=== PATIENT | female | born 1940 | race Caucasian/White ===

== ENCOUNTER 2017-10-08 13:50 | Inpatient (IN) | payer MEDICARE, OTHER ==
[2017-10-08 14:49] LABS: ADD MAN DIFF? NO
[2017-10-08 14:51] LABS: BASOPHIL # 0.1 10^3/ul (0.0-0.1); BASOPHILS % 1.2 % (0.0-2.0); EOSINOPHILS # 0.2 10^3/ul (0.0-0.5); EOSINOPHILS % 2.5 % (0.0-7.0); HEMATOCRIT 28.8 % (37.0-47.0); HEMOGLOBIN 9.9 g/dl (12.0-16.0); LYMPHOCYTES # 1.3 10^3/ul (0.8-2.9); LYMPHOCYTES % 19.6 % (15.0-51.0); MEAN CORPUSCULAR HEMOGLOBIN 27.7 pg (29.0-33.0); MEAN CORPUSCULAR HGB CONC 34.4 g/dl (32.0-37.0); MEAN CORPUSCULAR VOLUME 80.4 fl (82.0-101.0); MEAN PLATELET VOLUME 10.3 fl (7.4-10.4); MONOCYTE # 0.7 10^3/ul (0.3-0.9); MONOCYTES % 11.3 % (0.0-11.0); NEUTROPHIL # 4.2 10^3/ul (1.6-7.5); NEUTROPHILS % 64.5 % (39.0-77.0); PLATELET COUNT 342 10^3/UL (140-415); RED BLOOD COUNT 3.58 10^6/ul (4.20-5.40); RED CELL DISTRIBUTION WIDTH 14.3 % (11.5-14.5)
[2017-10-08 14:51] LABS: WHITE BLOOD COUNT 6.5 10^3/ul (4.8-10.8)
[2017-10-08 15:13] LABS: ANION GAP 17 (8-16); BLOOD UREA NITROGEN 11 mg/dl (7-20); CALCIUM 9.3 mg/dl (8.4-10.2); CARBON DIOXIDE 36 mmol/L (21-31); CHLORIDE 95 mmol/L (97-110); CREATININE 2.99 mg/dl (0.44-1.00); GLUCOSE 105 mg/dl (70-220); POTASSIUM 3.7 mmol/L (3.5-5.1); SODIUM 144 mmol/L (135-144)
[2017-10-08 15:24] LABS: TROPONIN-I 0.017 ng/ml (0.00-0.12)
[2017-10-08] MEDS ORDERED: NACL 0.9% 3 ML SYG IV (19:00)
[2017-10-08] MEDS: ACETAMINOPHEN 325 MG TAB PO (20:02)
[2017-10-08] MEDS: LOSARTAN 50 MG TAB PO (21:16)
[2017-10-08] MEDS: METOPROLOL 50 MG TAB PO (23:07)
[2017-10-09] MEDS: PANTOPRAZOLE (EC) 40 MG TAB PO (05:51)
[2017-10-09 07:46] LABS: ADD MAN DIFF? NO
[2017-10-09 07:49] LABS: BASOPHIL # 0.1 10^3/ul (0.0-0.1); BASOPHILS % 1.3 % (0.0-2.0); EOSINOPHILS # 0.1 10^3/ul (0.0-0.5); EOSINOPHILS % 1.6 % (0.0-7.0); LYMPHOCYTES # 1.9 10^3/ul (0.8-2.9); MEAN CORPUSCULAR HGB CONC 33.3 g/dl (32.0-37.0); MEAN CORPUSCULAR VOLUME 81.1 fl (82.0-101.0); MEAN PLATELET VOLUME 10.4 fl (7.4-10.4); MONOCYTE # 0.9 10^3/ul (0.3-0.9); NEUTROPHIL # 3.9 10^3/ul (1.6-7.5); NEUTROPHILS % 56.5 % (39.0-77.0); PLATELET COUNT 353 10^3/UL (140-415); RED BLOOD COUNT 3.33 10^6/ul (4.20-5.40); RED CELL DISTRIBUTION WIDTH 14.4 % (11.5-14.5)
[2017-10-09 07:49] LABS: WHITE BLOOD COUNT 6.9 10^3/ul (4.8-10.8)
[2017-10-09 08:19] LABS: ANION GAP 18 (8-16); BLOOD UREA NITROGEN 17 mg/dl (7-20); CALCIUM 9.3 mg/dl (8.4-10.2); CARBON DIOXIDE 36 mmol/L (21-31); CHLORIDE 93 mmol/L (97-110); CREATININE 4.75 mg/dl (0.44-1.00); GLUCOSE 85 mg/dl (70-220); POTASSIUM 4.5 mmol/L (3.5-5.1); SODIUM 142 mmol/L (135-144)
[2017-10-09] MEDS: ENOXAPARIN 30 MG/0.3 ML SYG SC (08:56)
[2017-10-09] MEDS: CALCIUM ACETATE 667 MG CAP PO ×3 (08:57→18:05)
[2017-10-09] MEDS: ASPIRIN (EC) 81 MG TAB PO (08:57)
[2017-10-09] MEDS: METOPROLOL 50 MG TAB PO ×2 (08:57→21:09)
[2017-10-09] MEDS: LOSARTAN 50 MG TAB PO ×2 (08:57→21:10)
[2017-10-09] MEDS: NIFEdipine (XL) 90 MG TAB PO (08:58)
[2017-10-09] MEDS: ACETAMINOPHEN 325 MG TAB PO (08:58)
[2017-10-09] MEDS: OLOPATADINE 0.7% BOTH EYES (09:00)
[2017-10-09] MEDS: [UNRECOGNIZED DRUG - REMARK] XX ×2 (09:30→17:30)
[2017-10-09] MEDS: GUAIFENESIN/DM 5ML CUP PO ×2 (15:32→21:10)
[2017-10-09] MEDS: morphine 2 MG INJ IV (22:47)
[2017-10-09] MEDS: ONDANSETRON 4 MG INJ IV (22:47)
[2017-10-10] MEDS: [UNRECOGNIZED DRUG - REMARK] XX (01:30)
[2017-10-10] MEDS: PANTOPRAZOLE (EC) 40 MG TAB PO (06:00)
[2017-10-10 07:03] LABS: ADD MAN DIFF? NO
[2017-10-10 07:11] LABS: WHITE BLOOD COUNT 8.3 10^3/ul (4.8-10.8)
[2017-10-10 07:11] LABS: BASOPHIL # 0.1 10^3/ul (0.0-0.1); BASOPHILS % 1.1 % (0.0-2.0); EOSINOPHILS # 0.3 10^3/ul (0.0-0.5); EOSINOPHILS % 3.3 % (0.0-7.0); HEMATOCRIT 27.7 % (37.0-47.0); HEMOGLOBIN 9.3 g/dl (12.0-16.0); LYMPHOCYTES # 2.1 10^3/ul (0.8-2.9); LYMPHOCYTES % 24.7 % (15.0-51.0); MEAN CORPUSCULAR HEMOGLOBIN 27.4 pg (29.0-33.0); MEAN CORPUSCULAR HGB CONC 33.6 g/dl (32.0-37.0); MEAN CORPUSCULAR VOLUME 81.5 fl (82.0-101.0); MEAN PLATELET VOLUME 10.2 fl (7.4-10.4); MONOCYTE # 0.9 10^3/ul (0.3-0.9); MONOCYTES % 11.2 % (0.0-11.0); NEUTROPHIL # 4.9 10^3/ul (1.6-7.5); NEUTROPHILS % 59.3 % (39.0-77.0); PLATELET COUNT 342 10^3/UL (140-415); RED CELL DISTRIBUTION WIDTH 14.8 % (11.5-14.5)
[2017-10-10 07:33] LABS: IRON 59 ug/dl (35-150)
[2017-10-10 07:35] LABS: PHOSPHORUS 4.2 mg/dl (2.5-4.9)
[2017-10-10 07:35] LABS: CHOL/HDL RATIO 5.3 RATIO; CHOLESTEROL 170 mg/dl (100-200); HDL CHOLESTEROL 32 mg/dl (33-92); LDL CHOLESTEROL,CALCULATED 94 mg/dl; MAGNESIUM 2.1 mg/dl (1.7-2.5); TRIGLYCERIDES 221 mg/dl (0-149)
[2017-10-10 07:43] LABS: % IRON SATURATION 35 % SAT (22-52); TOTAL IRON BINDING CAPACITY 171 ug/dl (241-421)
[2017-10-10 07:44] LABS: HEMOGLOBIN A1C 4.7 % (0-5.9)
[2017-10-10 07:47] LABS: ANION GAP 17 (8-16); BLOOD UREA NITROGEN 26 mg/dl (7-20); CALCIUM 9.6 mg/dl (8.4-10.2); CARBON DIOXIDE 37 mmol/L (21-31); CHLORIDE 91 mmol/L (97-110); CREATININE 6.88 mg/dl (0.44-1.00); GLUCOSE 94 mg/dl (70-220); POTASSIUM 4.8 mmol/L (3.5-5.1); SODIUM 140 mmol/L (135-144)
[2017-10-10 07:50] LABS: FREE T4 (FREE THYROXINE) 1.94 ng/dl (0.78-2.44)
[2017-10-10] MEDS: OLOPATADINE 0.7% BOTH EYES (08:41)
[2017-10-10] MEDS: ASPIRIN (EC) 81 MG TAB PO (08:42)
[2017-10-10] MEDS: CALCIUM ACETATE 667 MG CAP PO ×3 (08:42→17:33)
[2017-10-10] MEDS: ENOXAPARIN 30 MG/0.3 ML SYG SC (08:44)
[2017-10-10] MEDS: LOSARTAN 50 MG TAB PO ×2 (08:45→21:06)
[2017-10-10] MEDS: NIFEdipine (XL) 90 MG TAB PO (08:46)
[2017-10-10] MEDS: METOPROLOL 50 MG TAB PO ×2 (08:46→21:06)
[2017-10-10] MEDS ORDERED: INFLUENZA VIRUS VACCINE 0.5 ML (DISPENSING) IM* (09:00)
[2017-10-10] MEDS: ONDANSETRON 4 MG INJ IV (10:55)
[2017-10-10] MEDS: GUAIFENESIN/DM 5ML CUP PO ×2 (10:58→18:23)
[2017-10-10] MEDS: BISACODYL (EC) 5 MG TAB PO (12:46)
[2017-10-11] MEDS: GUAIFENESIN/DM 5ML CUP PO ×2 (01:50→21:57)
[2017-10-11] MEDS: ACETAMINOPHEN 325 MG TAB PO ×4 (01:57→21:06)
[2017-10-11] MEDS: PANTOPRAZOLE (EC) 40 MG TAB PO (06:10)
[2017-10-11 08:27] LABS: ADD MAN DIFF? NO
[2017-10-11 08:32] LABS: WHITE BLOOD COUNT 8.1 10^3/ul (4.8-10.8)
[2017-10-11 08:32] LABS: BASOPHIL # 0.1 10^3/ul (0.0-0.1); BASOPHILS % 1.1 % (0.0-2.0); EOSINOPHILS # 0.3 10^3/ul (0.0-0.5); EOSINOPHILS % 3.7 % (0.0-7.0); HEMATOCRIT 28.8 % (37.0-47.0); HEMOGLOBIN 9.6 g/dl (12.0-16.0); LYMPHOCYTES # 2.1 10^3/ul (0.8-2.9); LYMPHOCYTES % 26.2 % (15.0-51.0); MEAN CORPUSCULAR HEMOGLOBIN 27.7 pg (29.0-33.0); MEAN CORPUSCULAR HGB CONC 33.3 g/dl (32.0-37.0); MEAN CORPUSCULAR VOLUME 83.2 fl (82.0-101.0); MEAN PLATELET VOLUME 9.9 fl (7.4-10.4); MONOCYTE # 0.9 10^3/ul (0.3-0.9); MONOCYTES % 11.1 % (0.0-11.0); NEUTROPHIL # 4.7 10^3/ul (1.6-7.5); NEUTROPHILS % 57.4 % (39.0-77.0); PLATELET COUNT 327 10^3/UL (140-415); RED BLOOD COUNT 3.46 10^6/ul (4.20-5.40); RED CELL DISTRIBUTION WIDTH 15.7 % (11.5-14.5)
[2017-10-11] MEDS: ASPIRIN (EC) 81 MG TAB PO (08:37)
[2017-10-11] MEDS: CALCIUM ACETATE 667 MG CAP PO ×3 (08:37→17:38)
[2017-10-11] MEDS: ENOXAPARIN 30 MG/0.3 ML SYG SC (08:37)
[2017-10-11] MEDS: LOSARTAN 50 MG TAB PO ×2 (08:38→21:03)
[2017-10-11] MEDS: NIFEdipine (XL) 90 MG TAB PO (08:38)
[2017-10-11] MEDS: METOPROLOL 50 MG TAB PO ×2 (08:38→21:04)
[2017-10-11] MEDS: OLOPATADINE 0.7% BOTH EYES (08:39)
[2017-10-11] MEDS: INFLUENZA VIRUS VACCINE 0.5 ML (DISPENSING) IM* (08:42)
[2017-10-11 08:51] LABS: ANION GAP 17 (8-16); BLOOD UREA NITROGEN 12 mg/dl (7-20); CALCIUM 9.4 mg/dl (8.4-10.2); CARBON DIOXIDE 29 mmol/L (21-31); CHLORIDE 99 mmol/L (97-110); CREATININE 4.09 mg/dl (0.44-1.00); GLUCOSE 87 mg/dl (70-220); SODIUM 140 mmol/L (135-144)
[2017-10-11 08:54] LABS: PHOSPHORUS 3.4 mg/dl (2.5-4.9)
[2017-10-11 18:14] LABS: CK-MB 1.86 ng/ml (0.0-2.4); TROPONIN-I 0.034 ng/ml (0.00-0.12)
[2017-10-11 18:27] LABS: CK INDEX 1.7; CREATINE KINASE 109 IU/L (23-200)
[2017-10-12 01:35] LABS: CREATINE KINASE 100 IU/L (23-200)
[2017-10-12 01:42] LABS: CK INDEX 1.6; CK-MB 1.61 ng/ml (0.0-2.4); TROPONIN-I 0.044 ng/ml (0.00-0.12)
[2017-10-12] MEDS: PANTOPRAZOLE (EC) 40 MG TAB PO (05:30)
[2017-10-12] MEDS: CALCIUM ACETATE 667 MG CAP PO ×3 (07:54→17:26)
[2017-10-12] MEDS: METOPROLOL 50 MG TAB PO ×2 (08:20→20:31)
[2017-10-12] MEDS: ASPIRIN (EC) 81 MG TAB PO (08:20)
[2017-10-12] MEDS: LOSARTAN 50 MG TAB PO ×2 (08:21→20:31)
[2017-10-12] MEDS: NIFEdipine (XL) 90 MG TAB PO (08:21)
[2017-10-12] MEDS: OLOPATADINE 0.7% BOTH EYES (08:22)
[2017-10-12] MEDS: ENOXAPARIN 30 MG/0.3 ML SYG SC (08:24)
[2017-10-12 10:45] LABS: ADD MAN DIFF? NO
[2017-10-12 11:02] LABS: BASOPHIL # 0.1 10^3/ul (0.0-0.1); BASOPHILS % 1.1 % (0.0-2.0); EOSINOPHILS # 0.5 10^3/ul (0.0-0.5); EOSINOPHILS % 6.4 % (0.0-7.0); HEMATOCRIT 28.4 % (37.0-47.0); HEMOGLOBIN 9.5 g/dl (12.0-16.0); LYMPHOCYTES # 2.5 10^3/ul (0.8-2.9); LYMPHOCYTES % 33.5 % (15.0-51.0); MEAN CORPUSCULAR HEMOGLOBIN 27.5 pg (29.0-33.0); MEAN CORPUSCULAR HGB CONC 33.5 g/dl (32.0-37.0); MEAN CORPUSCULAR VOLUME 82.1 fl (82.0-101.0); MEAN PLATELET VOLUME 10.6 fl (7.4-10.4); MONOCYTE # 0.7 10^3/ul (0.3-0.9); MONOCYTES % 9.6 % (0.0-11.0); NEUTROPHIL # 3.6 10^3/ul (1.6-7.5); PLATELET COUNT 317 10^3/UL (140-415); RED BLOOD COUNT 3.46 10^6/ul (4.20-5.40); RED CELL DISTRIBUTION WIDTH 15.2 % (11.5-14.5)
[2017-10-12 11:02] LABS: WHITE BLOOD COUNT 7.4 10^3/ul (4.8-10.8)
[2017-10-12 11:12] LABS: MAGNESIUM 1.9 mg/dl (1.7-2.5)
[2017-10-12 11:12] LABS: PHOSPHORUS 3.6 mg/dl (2.5-4.9)
[2017-10-12 11:17] LABS: ANION GAP 20 (8-16); BLOOD UREA NITROGEN 25 mg/dl (7-20); CALCIUM 9.2 mg/dl (8.4-10.2); CARBON DIOXIDE 27 mmol/L (21-31); CHLORIDE 95 mmol/L (97-110); CREATININE 6.24 mg/dl (0.44-1.00); GLUCOSE 106 mg/dl (70-220); POTASSIUM 4.7 mmol/L (3.5-5.1); SODIUM 137 mmol/L (135-144)
[2017-10-12] MEDS: GUAIFENESIN/DM 5ML CUP PO (12:07)
[2017-10-21] MEDS ORDERED: ERGOCALCIFEROL 50,000 UNIT CAP PO (09:00)
== END 2017-10-12 22:25 | disposition home or self-care (01) | DRG 312 ==
LOC: E/R 13:50 → MS4 17:19
PROC: 5A1D70Z Performance of Urinary Filtration, Intermittent, Less than 6 Hours Per Day (ICD-10-PCS; principal; 2017-10-10)
DX: R55 Syncope and collapse (principal); N18.6 End stage renal disease; I95.3 Hypotension of hemodialysis; I12.0 Hypertensive chronic kidney disease with stage 5 chronic kidney disease or end stage renal disease; S06.5X9A Traumatic subdural hemorrhage with loss of consciousness of unspecified duration, initial encounter; D64.9 Anemia, unspecified; Z99.2 Dependence on renal dialysis; I35.0 Nonrheumatic aortic (valve) stenosis; J20.9 Acute bronchitis, unspecified; D18.1 Lymphangioma, any site; W18.30XA Fall on same level, unspecified, initial encounter; Y92.480 Sidewalk as the place of occurrence of the external cause
CPT/HCPCS: 36415; 70450; 70551; 71045; 72125; 80048; 80061; 82550; 82553; 82728; 83036; 83540; 83735; 84100; 84439; 84443; 84484; 85025; 90935; 93005; 93306; 93880; 99285-25; G0378